=== PATIENT | female | born 2000 | race Caucasian/White ===

== ENCOUNTER 2025-01-10 22:44 | Emergency (ER) | payer MEDICAID, OTHER ==
[~2025-01-10] VITALS: Ht 165.1 cm; Wt 68.0 kg
[2025-01-10 23:29] VITALS: O2SAT 100
[2025-01-11] MEDS: METOCLOPRAMIDE HCL 10MG/2ML VIAL IV ONE ×2 (01:00→04:03)
[2025-01-11] MEDS ORDERED: FAMOTIDINE 20MG/2ML VIAL IV ONE ×2 (01:00→03:45)
[2025-01-11 01:25] LABS: CLARITY URINE CLEAR (CLEAR); COLOR URINE YELLOW (YELLOW); GLUCOSE URINE NEGATIVE (NEGATIVE); KETONES URINE NEGATIVE (NEGATIVE); LEUKOCYTE ESTERASE URINE NEGATIVE (NEGATIVE); NITRITE URINE NEGATIVE (NEGATIVE); OCCULT BLOOD URINE NEGATIVE (NEGATIVE); PH URINE 6.5 (4.5-8.0); PROTEIN URINE NEGATIVE (NEGATIVE); SPECIFIC GRAVITY URINE 1.006 (1.005-1.030); UROBILINOGEN URINE 0.2 E.U./dL (0.2-1.0)
[2025-01-11 02:51] LABS: BASOPHILS % 0.4 % (0.0-2.0); HEMATOCRIT. 37.6 % (36.0-48.0); HEMOGLOBIN. 12.9 g/dL (12.0-16.0); LYMPHOCYTES % 26.9 % (20.0-50.0); MEAN CORPUSCULAR HEMOGLOBIN 30.7 pg (28.0-32.0); MEAN CORPUSCULAR HGB CONC 34.3 g/dL (31.0-37.0); MEAN CORPUSCULAR VOLUME 89.5 fL (81.0-99.0); MEAN PLATELET VOLUME 9.5 fl (7.4-10.4); MONOCYTES % 7.3 % (2.0-8.0); NEUTROPHILS % 63.4 % (40.0-76.0); PLATELET 290 x1000/uL (130-400); RED CELL DISTRIBUTION WIDTH 13.4 % (11.6-14.6); WHITE BLOOD COUNT 11.9 x1000/uL (4.5-11.0)
[2025-01-11 02:55] LABS: CHLORIDE 103 mEq/L (98-107); POTASSIUM 4.3 mEq/L (3.5-5.1); SODIUM 136 mEq/L (136-145)
[2025-01-11 02:56] LABS: CARBON DIOXIDE 25 mEq/L (21-32)
[2025-01-11] MEDS ORDERED: FAMOTIDINE 20MG/2ML VIAL IV NR (03:00)
[2025-01-11] MEDS ORDERED: METOCLOPRAMIDE HCL 10MG/2ML VIAL IV NR (03:00)
[2025-01-11 03:01] LABS: CREATININE 0.6 mg/dL (0.6-1.0)
[2025-01-11 03:02] LABS: GLUCOSE 85 mg/dL (70-105); UREA NITROGEN BLOOD 6 mg/dL (9-23)
[2025-01-11 03:03] LABS: ALANINE AMINOTRANSFERASE 24 IU/L (10-49); ALBUMIN 4.8 g/dL (3.2-4.8); ASPARTATE AMINOTRANSFERASE 18 IU/L (<34)
[2025-01-11 03:04] LABS: BILIRUBIN DIRECT < 0.1 mg/dL (<=3.0); BILIRUBIN TOTAL 0.3 mg/dL (0.1-1.0); INR 0.9; PROTEIN TOTAL 7.4 g/dL (6.0-8.3); PROTHROMBIN TIME 9.8 sec (9.6-11.0)
[2025-01-11 03:09] LABS: B-HCG QUANTITATIVE > 1000 mIU/mL (<6); TROPONIN I HIGH SENSITIVITY < 4 ng/L (3.0-34)
[2025-01-11] MEDS: FAMOTIDINE 20MG/2ML VIAL IV NR ×2 (03:44→04:14)
[2025-01-11] MEDS ORDERED: ONDA-239 PO (04:50)
[2025-01-11] MEDS ORDERED: ACET-3800 MT (04:50)
[2025-01-11 04:53] VITALS: BP 114/67; PULSE 78; RESP 12; TEMP 36.3; O2SAT 100
== END 2025-01-11 05:01 | disposition home or self-care (01) ==
LOC: ER 22:44
DX: O21.9 Vomiting of pregnancy, unspecified (principal); O26.891 Other specified pregnancy related conditions, first trimester; R10.2 Pelvic and perineal pain; R51.9 Headache, unspecified; I10 Essential (primary) hypertension; Z79.899 Other long term (current) drug therapy; Z3A.08 8 weeks gestation of pregnancy
CPT/HCPCS: 99285; 96374; 76801; 96375; 80076; 80048; 81003; 81025; 84702; 83690; 85025; 85610; 86850; 86900; 86901; 84484; 36415; 76817; J1308; J2765